=== PATIENT | female | born 1980 | race Caucasian/White ===

== ENCOUNTER 2024-03-06 08:28 | Outpatient (CLI) | payer BC, SELFPAY | END 2024-03-06 08:29 | disposition home or self-care (01) | PROVIDERS: PCP Nurse Practitioner Family; Visit Provider Nurse Practitioner Family | DX: Z13.220 Encounter for screening for lipoid disorders (principal); Z13.0 Encounter for screening for diseases of the blood and blood-forming organs and certain disorders involving the immune mechanism; Z13.228 Encounter for screening for other metabolic disorders; Z13.29 Encounter for screening for other suspected endocrine disorder | CPT/HCPCS: 80053; 80061; 82306; 84443; 85025 ==

== ENCOUNTER 2025-01-30 07:02 | Outpatient (CLI) | payer BC, SELFPAY ==
--- NOTE | 2025-01-30 | CRLHL7_ITS ---
For Patients: As a result of the 21st Century Cures Act, medical imaging exams and procedure reports are released immediately into your electronic medical record. You may view this report before your referring provider. If you have questions, please contact your health care provider. CLINICAL INDICATION: Left shoulder pain. COMPARISON IMAGING STUDIES: Radiographs from 01/14/2025. TECHNICAL: Non-contrast MRI of the left shoulder. Axial, sagittal oblique and coronal oblique T1, PD, PD FS, T2 and T2 FS images. 1.5 [facility] MR scanner. FINDINGS: GLENOHUMERAL JOINT: Effusion: Physiologic quantity of joint fluid. Humeral Head Articular Cartilage: Maintained. Glenoid Articular Cartilage: Maintained. Alignment: Maintained. Capsule: No capsular edema or abnormal capsular thickening. OSSEOUS STRUCTURES: No fracture or marrow replacement process. CORACOACROMIAL ARCH: Acromial Morphology: Type 2 acromial morphology. No excessive lateral or anterior downward sloping of the acromion. No os acromiale. No significant subacromial spur. Lateral acromial thickness is 6 mm. Acromiohumeral Interval: At its narrowest, the interval measures 6 mm. Mildly prominent coracoacromial ligament. Coracohumeral Interval: At its narrowest, the coracohumeral interval measures 9 mm. Coracoid index is 14 mm. ACROMIOCLAVICULAR JOINT REGION: AC joint capsular edema. Mild AC joint arthrosis. Coracoclavicular ligament intact. BURSAE: Subacromial-subdeltoid bursal edema compatible with mild bursal inflammation. ROTATOR CUFF TENDONS AND MUSCLES AND DELTOID: Supraspinatus and Infraspinatus: There is a 4 millimeter focus of calcification associated with the distal supraspinatus tendon compatible with calcific tendinitis. This is subtly apparent on coronal oblique T2 image number 11 of series 6. There is mild tendinosis of the distal supraspinatus tendon otherwise. No significant distal tendon tear. Distal infraspinatus tendon is intact. No muscle atrophy. Teres Minor: No tendinosis, tendon tearing, muscle atrophy or muscle edema. Subscapularis: Mild distal subscapularis tendinosis. No subscapularis tendon tear or muscle atrophy. Deltoid: No muscle atrophy or edema. BICEPS TENDON, LONG HEAD: The long head of the biceps tendon is intact. No subluxation or dislocation of tendon from bicipital groove. GLENOID LABRUM: Intact. OTHER FINDINGS: There is no abnormality within the suprascapular or spinoglenoid notches nor within the quadrilateral space. Increased number of small nonspecific axillary lymph nodes are present. IMPRESSION: 1. 4 millimeter focus of calcific tendonitis associated with the distal supraspinatus tendon, left shoulder. Mild distal supraspinatus tendinosis. Mild distal subscapularis tendinosis. No significant rotator cuff tendon tear. 2. Mild subacromial-subdeltoid bursal edema/inflammation. 3. Mild AC joint arthrosis with AC joint capsular edema. 4. Glenohumeral joint maintained. Dictated by Ashok Nunn MD @ 01/30/2025 12:22:48 PM (Electronically Signed)
--- NOTE | 2025-01-30 07:15 | CRLHL7_ITS ---
For Patients: As a result of the Century Cures Act, medical imaging exams and procedure reports are released immediately into your electronic medical record. You may view this report before your referring provider. If you have questions, please contact your health care provider. Indication: Epigastric pain Technique: Right upper quadrant ultrasound utilizing grayscale Doppler and, duplex color flow techniques Comparison: None Findings: Pancreas: Partially visualized portions are grossly unremarkable. Abdominal aorta: Visualized portions are normal in caliber. Liver: 15 centimeters in length with echogenicity which is at the upper limits of normal. No cysts or masses. Hepatopetal flow present within the main portal vein. Gallbladder: Multiple stones. No gallbladder wall thickening or pericholecystic fluid. Common bile duct: 4 millimeters. Right kidney: 12 centimeters in length. Normal echogenicity and cortical thickness. No stones or hydronephrosis. Free fluid: None. Impression: Cholelithiasis. Dictated by Kurtis Gloria MD @ 01/30/2025 4:57:25 PM (Electronically Signed)
== END 2025-01-30 07:03 | disposition home or self-care (01) ==
LOC: US 07:02
PROVIDERS: PCP Nurse Practitioner Family; Visit Provider Nurse Practitioner Family
DX: R10.13 Epigastric pain (principal); K80.20 Calculus of gallbladder without cholecystitis without obstruction; M25.512 Pain in left shoulder; M75.52 Bursitis of left shoulder; M19.012 Primary osteoarthritis, left shoulder
CPT/HCPCS: 73221; 76705

== ENCOUNTER 2025-02-04 10:04 | Outpatient (CLI) | payer BC, SELFPAY ==
--- NOTE | 2025-02-04 11:31 | P.ANES_ITS ---
Anesthesia Charges Start Date/Time Anesthesia Start Date: 02/04/25 Anesthesia Start Time: 11:00 Stop Date/Time Anesthesia Stop Date: 02/04/25 Anesthesia Stop Time: 11:29 Coding CPT Codes CPT Codes: ANES LWR INTST SCR COLSC - 61317 ([id number]) P2 - PATIENT W/MILD SYST DISEASE, QZ - BRINE PURIFIER SVC W/O SYSTEMS SOFTWARE DESIGNER BY
--- NOTE | 2025-02-04 11:31 | W.ANESCHARGE ---
Anesthesia Charges Start Date/Time Anesthesia Start Date: 02/04/25 Anesthesia Start Time: 11:00 Stop Date/Time Anesthesia Stop Date: 02/04/25 Anesthesia Stop Time: 11:29 Coding CPT Codes CPT Codes: ANES LWR INTST SCR COLSC - 91850 ([id number]) P2 - PATIENT W/MILD SYST DISEASE, QZ - DIALYSIS EQUIPMENT TECHNICIAN SVC W/O SPECIAL EVENTS PLANNER BY
== END 2025-02-04 10:05 | disposition home or self-care (01) ==
LOC: OP CLINIC 10:04
PROVIDERS: PCP Nurse Practitioner Family; Visit Provider Internal Medicine
DX: Z12.11 Encounter for screening for malignant neoplasm of colon (principal)
CPT/HCPCS: 00812; 45378; J2405; J2704

== ENCOUNTER 2025-02-19 11:42 | Outpatient (CLI) | payer BC, SELFPAY ==
--- NOTE | 2025-02-19 13:30 | CRLHL7_ITS ---
For Patients: As a result of the Century Cures Act, medical imaging exams and procedure reports are released immediately into your electronic medical record. You may view this report before your referring provider. If you have questions, please contact your health care provider. Indication: Abdominal pain Technique: Nuclear medicine hepatobiliary scan with gallbladder ejection fraction after the intravenous administration of 7.6 millicuries technetium 99 M Mebrofenin and 1.8 micrograms of CCK. Comparison: None Findings: Normal hepatic extraction and excretion of the radiopharmaceutical with prompt appearance of the common bile duct followed by the gallbladder and small bowel. There is no enterogastric reflux. Visually normal gallbladder contraction is identified. Calculated gallbladder ejection fraction is 68 percent. Impression: Normal study. Dictated by Kurtis Gloria MD @ 02/19/2025 4:51:19 PM (Electronically Signed)
== END 2025-02-19 11:43 | disposition home or self-care (01) ==
LOC: NM 11:42
PROVIDERS: PCP Nurse Practitioner Family; Visit Provider Nurse Practitioner Family
DX: R10.9 Unspecified abdominal pain (principal)
CPT/HCPCS: 78227; A9537; J2805

== ENCOUNTER 2025-05-16 16:07 | Outpatient (CLI) | payer BC, SELFPAY | END 2025-05-16 16:08 | disposition home or self-care (01) | PROVIDERS: PCP Nurse Practitioner Family; Visit Provider Nurse Practitioner Family | DX: Z01.818 Encounter for other preprocedural examination (principal); N95.1 Menopausal and female climacteric states | CPT/HCPCS: 80053; 83001; 85025 ==